=== PATIENT | female | born 1940 ===

== ENCOUNTER 2016-06-28 12:48 | Inpatient (IN) | payer MEDICARE, OTHER ==
--- NOTE | 2016-06-28 13:02 | ED PDOC ---
Psych Transfer Clearance - Clearance Statement Clearance Statement: Reviewed vital signs, lab results and transfer papers. Patient clinically stable for psychiatric admission.
[2016-06-28 13:07] VITALS: O2SAT 99
[2016-06-28] MEDS ORDERED: Magnesium Hydroxide Susp 30 ml UD PO PRN (13:17)
[2016-06-28] MEDS ORDERED: Alum-Mag Hydrox-Simethicone Susp (30 mL) PO PRN (13:17)
--- NOTE | 2016-06-28 14:19 | PCM.PSYCH ---
Initial Psychiatric Evaluation - Initial Psychiatric Evaluation Type of Admission: Voluntary Legal Status: Capacity Chief Complaint (in patient's own words): "I don't know why I'm here." Patient's Reaction to Hospitalization: HPI: 75 y.o., , female who was admitted to 3 secondary to increased depressive symptoms, cognitive deficits and suicide gesture/threat. Pt was a transfer from [facility]. Pt was referred to the ED by her daughterSarita after pt attempted to stab herself with a knife and hit her head several times. Pt's daughter reported hx of depression and similar incident approximately 2 years ago. Pt's daughter reported decreased appetite resulting in approximately 10lbs loss. Per daughter, pt only eats soups and lately her appetite has worsened. Pt's daughter reported no known triggers for increased depressive symptoms and suicide gesture/attempt. Pt reported she does not recall grabbing the knife and attempting to hurt herself. Pt reported that lately her memory is "not the same." Pt reported episodes of depression. Pt reported no contributing triggers to her attempt or increased depression. Pt stated "its things from life." Pt reported episodes of hopeless and worthless. Pt actively denied SI and HI. Pt denied AH and VH. Pt denied any paranoia. Pts daughter reported that pts mood worsened in the past 2 weeks. Pts daughter reported that pt would enjoy watching television and reading; however, lately has not engaged in such activities. Pts daughter reported that ps short term memory is impaired. Per daughter, pt was dx with Alzheimer s disease and has been taking medication for her memory. Daughter reported that pt attends [facility] and it is very rare that pts stays at home alone. Per daughter there is somebody at home at all times. Pts daughter reported periods of crying spell and increasingly anxious. Pts daughter reported her brother completed suicide when he was 42 years old; however, pt refuses to accept his . Per daughter, pt has been talking about lately. PMHx: HTN, Alzheimer's dementia All: NKDA PPHx: No hx of prior psychiatric hospitalizations. Pt is not linked to outpatient mental health services and/or private psychiatrist. Pt's primary care physician is Dr. Enmanuel Pritchard MD. No hx of prior suicide attempt. No hx of self-injury bx's. No hx of aggressive/assaultive bx's. SHx: Pt reported growing up poor in [place] but in peace. Pt reported "normal" childhood. High School Graduation. Pt is not a member of the labor force. Pt is retired. 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 Pt denied hx of Sa/ETOH abuse. Pt's daughter is primary career services manager and support system. Prior to hospitalization, pt resided at home with daughter, son-in-law and 2 grandchildren. Pt is and reported having 2 childre; 1 son and 1 daughter. Pt's daughter, Sarita recently moved from [place] to [place]. Pt's son completed suicide 6 years. Pt's is actively involved in her [employer] and attends [facility] weekly. Pt attends [facility] 3x per week in the AM. FHx: Reportedly, pt's aunt was dx with Schizophrenia D/O and pt's son completed suicide 6 years ago. Current Medications: Active Medications Generic Name Dose Route Start Last Admin Trade Name Freq PRN Reason Stop Dose Admin Acetaminophen 650 mg 06/28/16 13:17 Tylenol 325mg Tab PO Q4 PRN Pain, moderate (4-7) Al Hydrox/Mg Hydrox/Simethicone 30 ml 06/28/16 13:17 Maalox Plus 30 Ml PO Q4 PRN Dyspepsia Magnesium Hydroxide 30 ml 06/28/16 13:17 Milk Of Magnesia PO HS PRN Constipation Past Psychiatric History - Past Psychiatric History Pertinent Medical Hx (Current Medical&Sleep Prob, Allergies): Allergies Allergy/AdvReac Type Severity Reaction Status Date / Time No Known Allergies Allergy Verified 06/28/16 12:53 Review of Systems - Review of Systems Systems not reviewed;Unavailable: Dementia All systems: reviewed and no additional remarkable complaints except - Neurological Neurological: Memory Loss - Psychiatric Psychiatric: As Per HPI, Change in Appetite, Depression, Hopelessness, Memory Loss Mental Status Examination - Personal Presentation Personal Presentation: Looks stated age Additional comments: Cachetic - Affect Affect: Constricted - Motor Activity Motor Activity: Psychomotor Retardation - Reliability in Providing Information Reliability in Providing Information: Poor, due to cognitve impairment - Speech Speech: Coherent - Mood Mood: Depressed - Formal Thought Process Formal Thought Process: Loosening of associations - Obsessions/Compulsions Obsessions: No Compulsions: No - Cognitive Functions Orientation: Person Sensorium: Alert Estimate of Intelligence: Average Judgement: Imparied, as evidence by: Lack of insight into illness Memory: Recent impaired, as evidence by: Inability to recall events of the day, Recent imparied as evidence by:Inability to complete 3/3 object recall, Remote impaired as evidenced by: Inability to recall sig life events, Remote impaired as evidenced by: Inability to recall historical events - Risk Risk: Diminished functioning - Strength & Assets Inventory Strength & Assets Inventory: Family support, Cooperative - Limitations Limitations: Decreased memory, recent DSM 5 DX - DSM 5 DSM 5 Diagnosis: Depressive Disorder, Dementia with behavioral disturbances - Recommended/Plan of Treatment Treatment Recommendations and Plan of Treatment: -Admit to [facility] -Continue Depakote 125 mg PO Daily, check VPA level -Individual and group therapy -Medicine consult, evaluate for UTI Projected ELOS: 4-7 days Discharge Plan and Discharge Criteria: Discharge when psychiatrically stable - Smoking Cessation Smoking Cessation Initiated: No Reason for not providing: Not indicated
[2016-06-28 18:01] LABS: RBC URINE < 1 /hpf (0-3); URINE BACTERIA RARE (<OCC); URINE BILIRUBIN NEGATIVE (NEGATIVE); URINE BLOOD NEGATIVE (NEGATIVE); URINE COLOR YELLOW (YELLOW); URINE GLUCOSE (UA) NEG (Normal); URINE KETONE TRACE mg/dL (NEGATIVE); URINE LEUKOCYTE ESTERASE NEG Leu/uL (Negative); URINE PROTEIN NEGATIVE (NEGATIVE); WBC URINE 1 /hpf (0-5)
[2016-06-28] MEDS: Divalproex 125 mg DR (BID formulation) PO SCH (19:16)
[2016-06-28] MEDS: Latanoprost 0.005% Opht SOUTION OD SCH (22:00)
[2016-06-29 07:23] LABS: T4 9.15 ug/dl (5.5-11.0)
[2016-06-29 07:36] LABS: THYROID STIMULATING HORMONE 0.72 mIU/ML (0.46-4.68)
[2016-06-29] MEDS: Divalproex 125 mg DR (BID formulation) PO SCH ×2 (08:05→16:35)
[2016-06-29] MEDS: NAMZARIC PO SCH (08:07)
[2016-06-29] MEDS: Pantoprazole 40 mg EC Tab PO SCH (08:07)
[2016-06-29] MEDS: Brimonidine 0.2% 50 DROP/5 ML BOTTLE OD SCH ×3 (08:12→16:42)
--- NOTE | 2016-06-29 10:45 | PCM.PYCHPN ---
Psychiatric Progress Note - Psychiatric Progress Note Patient seen today, length of contact: Patient evaluated, case discussed with team, chart reviewed 35 min Patient Chief Complaint: "I don't know why I'm here." Problems Identified/Issues Discussed: A+O x 1. Patient does not know where she is, the date, the situation or context. She does report having poor appetite and feeling depressed. No suicidal ideation/plan/intent. She was suspicious towards staff and did not believe staff when told numerous times that her daughter has not been admitted to the hospital and that her daughter is safe. She would not sign the paperwork due to likely paranoia during the group meeting. She was observed praying this morning. She has been in good behavioral control. Diagnostic Results: 06/29/16- VPA 35 Medication Change: Yes (Start Risperdal 0.5 mg PO Daily@1700, Increase Depakote to 125 mg PO BID) Medical Record Reviewed: Yes Mental Status Examination - Cognitive Function Orientation: Person Memory: Impaired Attention: Poor Concentration: Poor Association: Loose Fund of Knowledge: Poor Decription of patient's judgement and insights: Poor insight, judgment limited by dementia - Mood Mood: Depressed - Affect Affect: Constricted - Formal Thought Process Formal Thought Process: Paranoia, Loosening of associations Psychotic Thoughts and Behaviors: Showing some mild paranoia and suspiciousness towards staff - Suicidal Ideation Suicidal Ideation: No - Homicidal Ideation Homicidal Ideation: No Goal/Treatment Plan - Goal/Treatment Plan Need for Continued Stay: Remain at risks for inpatient hospitalization, Severe depression anxiety, Discharge may exacerbated symptoms, Severe functional impairment Progress Toward Problem(s) and Goals/Treatment Plan: -Admit to [facility] -Increase Depakote to 125 mg PO BID, Start Risperdal 0.5 mg PO Daily@1700 -Individual and group therapy -Medicine consult Estimated Date of D/C: 07/04/16 - Smoking Cessation Smoking Cessation Initiated: No Reason for not providing: Not indicated
--- NOTE | 2016-06-29 15:27 | CP.PCM.CON ---
History of Present Illness - History of Present Illness History of Present Illness: 75 yo female with history of HTN and depression admitted to [facility] because of suicidal intent. Review of Systems - Review of Systems All systems: reviewed and no additional remarkable complaints except (aside from those mentioned above, 12 point system review were negative by me) Past Patient History - Past Social History Smoking Status: Never Smoked Chewing Tobacco Use: No Cigar Use: No Alcohol: None - CARDIAC Hx Hypertension: Yes - PULMONARY Hx Respiratory Disorders: No - NEUROLOGICAL Hx Alzheimer's Disease: Yes Hx Dementia: Yes - HEENT Hx Glaucoma: Yes - RENAL Hx Chronic Kidney Disease: No - ENDOCRINE/METABOLIC Hx Endocrine Disorders: No - HEMATOLOGICAL/ONCOLOGICAL Hx Blood Disorders: No - INTEGUMENTARY Hx Dermatological Problems: No - MUSCULOSKELETAL/RHEUMATOLOGICAL Hx Falls: No - GASTROINTESTINAL Hx Gastrointestinal Disorders: No - GENITOURINARY/GYNECOLOGICAL Hx Genitourinary Disorders: No - PSYCHIATRIC Hx Substance Use: No - ANESTHESIA Hx Anesthesia: No Hx Anesthesia Reactions: No Hx Malignant Hyperthermia: No Meds Allergies/Adverse Reactions: Allergies Allergy/AdvReac Type Severity Reaction Status Date / Time No Known Allergies Allergy Verified 06/28/16 12:53 - Medications Medications: Current Medications Acetaminophen (Tylenol 325mg Tab) 650 mg PO Q4 PRN PRN Reason: Pain, moderate (4-7) Al Hydrox/Mg Hydrox/Simethicone (Maalox Plus 30 Ml) 30 ml PO Q4 PRN PRN Reason: Dyspepsia Amlodipine Besylate (Norvasc) 5 mg PO DAILY [facility] Last Admin: 06/29/16 08:06 Dose: 5 mg Brimonidine Tartrate (Alphagan 0.2% Opht) 1 drop OD TID [facility] Last Admin: 06/29/16 13:28 Dose: 1 drop Divalproex Sodium (Depakote Dr(*Bid*)) 125 mg PO BID [facility] Last Admin: 06/29/16 08:05 Dose: 125 mg Home Med (Patient's Own Medication) 1 unit PO DAILY [facility] Last Admin: 06/29/16 08:07 Dose: 1 unit Latanoprost (Xalatan Opht) 1 drop OD HS [facility] Last Admin: 06/28/16 22:00 Dose: 1 drop Magnesium Hydroxide (Milk Of Magnesia) 30 ml PO HS PRN PRN Reason: Constipation Pantoprazole Sodium (Protonix Ec Tab) 40 mg PO DAILY [facility] Last Admin: 06/29/16 08:07 Dose: 40 mg Risperidone (Risperdal M-Tab) 0.5 mg PO DAILY@1700 [facility] Timolol Maleate (Timoptic 0.5% Ophth Soln) 1 drop OD BID [facility] Last Admin: 06/29/16 13:29 Dose: 1 drop Valsartan (Diovan) 320 mg PO DAILY [facility] Last Admin: 06/29/16 08:05 Dose: 320 mg Physical Exam - Constitutional Appears: No Acute Distress - Head Exam Head Exam: ATRAUMATIC - Eye Exam Eye Exam: absent: Scleral icterus - ENT Exam ENT Exam: Mucous Membranes Moist - Neck Exam Neck exam: Negative for: Meningismus - Respiratory Exam Respiratory Exam: absent: Rhonchi, Wheezes, Respiratory Distress - Cardiovascular Exam Cardiovascular Exam: REGULAR RHYTHM, +S1, +S2 - GI/Abdominal Exam GI & Abdominal Exam: Soft. absent: Tenderness - Rectal Exam Rectal Exam: Deferred - Neurological Exam Neurological exam: Alert, Oriented x3 - Psychiatric Exam Psychiatric exam: Flat Affect - Skin Skin Exam: Dry, Intact, Normal Color Results - Vital Signs Recent Vital Signs: Last Vital Signs Temp 97.1 F L 06/29/16 05:56 Pulse 93 H 06/29/16 08:06 Resp 18 06/29/16 05:56 BP 163/73 H 06/29/16 08:06 Pulse Ox 99 06/28/16 12:53 - Labs Labs: Laboratory Results - last 24 hr 06/28/16 06/29/16 06/29/16 17:46 06:39 06:39 Thyroxine (T4) 9.15 TSH 3rd Generation 0.72 Urine Color Yellow Urine Clarity Clear Urine pH 6.0 Ur Specific [place] 1.013 Urine Protein Negative Urine Glucose (UA) Neg Urine Ketones Trace Urine Blood Negative Urine Nitrate Negative Urine Bilirubin Negative Urine Urobilinogen 2.0 H Ur Leukocyte Esterase Neg Urine RBC (Auto) < 1 Urine Microscopic WBC 1 Ur Squamous Epith Cells < 1 Urine Bacteria Rare Valproic Acid 35.0 L Assessment & Plan (1) Suicidal intent Status: Acute Comment: psyche is managing
[2016-06-29] MEDS: Risperidone M tab 0.5MG PO SCH (16:34)
[2016-06-29] MEDS: Latanoprost 0.005% Opht SOUTION OD SCH (21:09)
[2016-06-30] MEDS: Divalproex 125 mg DR (BID formulation) PO SCH ×2 (08:43→17:03)
[2016-06-30] MEDS: Pantoprazole 40 mg EC Tab PO SCH (08:44)
[2016-06-30] MEDS: NAMZARIC PO SCH (08:46)
[2016-06-30] MEDS: Brimonidine 0.2% 50 DROP/5 ML BOTTLE OD SCH ×3 (08:47→17:02)
--- NOTE | 2016-06-30 10:27 | PCM.PYCHPN ---
Psychiatric Progress Note - Psychiatric Progress Note Patient seen today, length of contact: Patient evaluated, case discussed with team, chart reviewed 35 min Patient Chief Complaint: "I don't know why I'm here." Problems Identified/Issues Discussed: A+O x 1. Patient does not know where she is, the date, the situation or context. She is calm and cooperative and tried to leave the unit last night, but was redirectable. She denies current feelings of depression or suicidal ideation/plan/intent. She does report having poor appetite and has not been eating well on the unit. Diagnostic Results: 06/29/16- VPA 35 Medication Change: No Medical Record Reviewed: Yes Mental Status Examination - Cognitive Function Orientation: Person Memory: Impaired Attention: Poor Concentration: Poor Association: Loose Fund of Knowledge: Poor Decription of patient's judgement and insights: Poor insight, judgment limited by dementia - Mood Mood: Depressed - Affect Affect: Constricted - Formal Thought Process Formal Thought Process: Loosening of associations - Suicidal Ideation Suicidal Ideation: No - Homicidal Ideation Homicidal Ideation: No Goal/Treatment Plan - Goal/Treatment Plan Need for Continued Stay: Remain at risks for inpatient hospitalization, Severe depression anxiety, Discharge may exacerbated symptoms, Severe functional impairment Progress Toward Problem(s) and Goals/Treatment Plan: -Continue Depakote 125 mg PO BID, Continue Risperdal 0.5 mg PO Daily@1700 -Individual and group therapy -Medicine consult appreciated -Dietitian referral Estimated Date of D/C: 07/04/16 - Smoking Cessation Smoking Cessation Initiated: No Reason for not providing: Not indicated
[2016-06-30] MEDS: Risperidone M tab 0.5MG PO SCH (17:03)
--- NOTE | 2016-07-01 08:57 | PCM.PYCHPN ---
Psychiatric Progress Note - Psychiatric Progress Note Patient seen today, length of contact: Patient evaluated, case discussed with team, chart reviewed 35 min Patient Chief Complaint: "I'm good" Problems Identified/Issues Discussed: A+O x 1, orientation fluctuates due to dementia. Patient has been in good behavioral control without any ideation to harm herself. She is calm, cooperative and pleasant towards staff. She denies current feelings of depression or suicidal ideation/plan/intent. She does report having poor appetite and has not been eating well on the unit; is being given Ensure as per dietitian recommendation Diagnostic Results: 06/29/16- VPA 35 Medication Change: No Medical Record Reviewed: Yes Mental Status Examination - Cognitive Function Orientation: Person Memory: Impaired Attention: Poor Concentration: Poor Association: Loose Fund of Knowledge: Poor Decription of patient's judgement and insights: Poor insight, judgment limited by dementia - Mood Mood: Depressed - Affect Affect: Constricted - Speech Speech: Soft - Formal Thought Process Formal Thought Process: Loosening of associations Psychotic Thoughts and Behaviors: No AH/VH/delusions/paranoia - Suicidal Ideation Suicidal Ideation: No - Homicidal Ideation Homicidal Ideation: No Goal/Treatment Plan - Goal/Treatment Plan Need for Continued Stay: Remain at risks for inpatient hospitalization, Severe depression anxiety, Severe functional impairment Progress Toward Problem(s) and Goals/Treatment Plan: -Continue Depakote 125 mg PO BID, Continue Risperdal 0.5 mg PO Daily@1700 -Individual and group therapy -Medicine consult appreciated -Dietitian consult appreciated Estimated Date of D/C: 07/04/16
[2016-07-01] MEDS: Brimonidine 0.2% 50 DROP/5 ML BOTTLE OD SCH ×3 (09:09→17:36)
[2016-07-01] MEDS: Divalproex 125 mg DR (BID formulation) PO SCH ×2 (09:10→17:35)
[2016-07-01] MEDS: NAMZARIC PO SCH (09:11)
[2016-07-01] MEDS: Pantoprazole 40 mg EC Tab PO SCH (09:12)
[2016-07-01] MEDS: Multivitamin With Minerals Tab PO SCH (09:12)
[2016-07-01] MEDS: Risperidone M tab 0.5MG PO SCH (17:37)
[2016-07-01] MEDS: Latanoprost 0.005% Opht SOUTION OD SCH (21:03)
[2016-07-02] MEDS: Pantoprazole 40 mg EC Tab PO SCH ×2 (09:40→16:48)
[2016-07-02] MEDS: Divalproex 125 mg DR (BID formulation) PO SCH (09:40)
[2016-07-02] MEDS: NAMZARIC PO SCH ×2 (09:40→16:41)
[2016-07-02] MEDS: Multivitamin With Minerals Tab PO SCH ×2 (09:40→16:47)
[2016-07-02] MEDS: Brimonidine 0.2% 50 DROP/5 ML BOTTLE OD SCH ×3 (09:40→16:49)
[2016-07-02] MEDS ORDERED: DiphenhydrAMINE 50 mg/ml Inj IM PRN (10:49)
--- NOTE | 2016-07-02 11:36 | PCM.PYCHPN ---
Psychiatric Progress Note - Psychiatric Progress Note Patient seen today, length of contact: discussed with team Patient Chief Complaint: sleeping Problems Identified/Issues Discussed: pt sedated. she was given prn meds for agiation this am. was threatening staff with a fork. loud at night, screaming and unpredictable. dr. coleman has called in meds. Medication Change: Yes (per dr. coleman) Medical Record Reviewed: Yes Mental Status Examination - Cognitive Function Orientation: Person Memory: Impaired Attention: Poor Concentration: Poor Association: Loose Fund of Knowledge: Poor Decription of patient's judgement and insights: poor - Mood Mood: Depressed, Other (irritable) - Affect Affect: Constricted (sleeping currently) - Speech Speech: Soft - Formal Thought Process Formal Thought Process: Loosening of associations Psychotic Thoughts and Behaviors: pt is unpredictable - Suicidal Ideation Suicidal Ideation: No - Homicidal Ideation Homicidal Ideation: No Goal/Treatment Plan - Goal/Treatment Plan Need for Continued Stay: Remain at risks for inpatient hospitalization, Severe depression anxiety, Severe functional impairment Progress Toward Problem(s) and Goals/Treatment Plan: dementia with behavioral disturbance disposition planning med changes per dr. coleman Estimated Date of D/C: 07/04/16
[2016-07-02] MEDS: Divalproex 250 mg DR(BID formulation) PO SCH (16:42)
[2016-07-02] MEDS: Risperidone M tab 0.5MG PO SCH (16:43)
[2016-07-02] MEDS: Latanoprost 0.005% Opht SOUTION OD SCH (22:00)
[2016-07-03] MEDS: Brimonidine 0.2% 50 DROP/5 ML BOTTLE OD SCH ×3 (12:31→16:32)
[2016-07-03] MEDS: Multivitamin With Minerals Tab PO SCH (12:32)
[2016-07-03] MEDS: NAMZARIC PO SCH (12:33)
[2016-07-03] MEDS: Divalproex 125 mg DR (BID formulation) PO SCH (12:34)
[2016-07-03] MEDS: Pantoprazole 40 mg EC Tab PO SCH (12:37)
--- NOTE | 2016-07-03 14:28 | PCM.PYCHPN ---
Psychiatric Progress Note - Psychiatric Progress Note Patient seen today, length of contact: discussed with team Patient Chief Complaint: no c/o today Problems Identified/Issues Discussed: pt continues to have episodes of agitation. she has been given prn ativan two days in a row. he was refusing medications this am. Diagnostic Results: valproic acid level is 23.6 Medication Change: Yes (per dr. coleman) Medical Record Reviewed: Yes Mental Status Examination - Cognitive Function Orientation: Person Memory: Impaired Attention: Poor Concentration: Poor Association: Loose Fund of Knowledge: Poor Decription of patient's judgement and insights: poor - Mood Mood: Depressed, Other (irritable) - Affect Affect: Constricted (sleeping currently) - Speech Speech: Soft - Formal Thought Process Formal Thought Process: Loosening of associations Psychotic Thoughts and Behaviors: pt is unpredictable - Suicidal Ideation Suicidal Ideation: No - Homicidal Ideation Homicidal Ideation: No Goal/Treatment Plan - Goal/Treatment Plan Need for Continued Stay: Remain at risks for inpatient hospitalization, Severe depression anxiety, Severe functional impairment Progress Toward Problem(s) and Goals/Treatment Plan: dementia with behavioral disturbance disposition planning med changes per dr. coleman t/c increasing depakote, but will defer to primary team Estimated Date of D/C: 07/04/16
[2016-07-03] MEDS: Divalproex 250 mg DR(BID formulation) PO SCH (16:30)
[2016-07-03] MEDS: Risperidone M tab 0.5MG PO SCH (16:30)
[2016-07-03] MEDS: Latanoprost 0.005% Opht SOUTION OD SCH (21:12)
[2016-07-04] MEDS: Pantoprazole 40 mg EC Tab PO SCH (08:20)
[2016-07-04] MEDS: NAMZARIC PO SCH (08:21)
[2016-07-04] MEDS: Multivitamin With Minerals Tab PO SCH (08:22)
[2016-07-04] MEDS: Divalproex 125 mg DR (BID formulation) PO SCH (08:22)
[2016-07-04] MEDS: Brimonidine 0.2% 50 DROP/5 ML BOTTLE OD SCH ×3 (08:25→16:25)
--- NOTE | 2016-07-04 08:42 | PCM.PYCHPN ---
Psychiatric Progress Note - Psychiatric Progress Note Patient seen today, length of contact: Chart reviewed, patient interviewed, case discussed with team Patient Chief Complaint: "Can you help me call my daughter?" Problems Identified/Issues Discussed: A+O x 1, orientation fluctuates due to dementia. Patient has had several episodes of agitation over the weekend, requiring PRN medications. She has poor insight into her periods of aggression and does not recall being aggressive or threatening. She is currently calm and cooperative with property underwriter, but continues to be paranoid and suspicious of others. Diagnostic Results: 06/29/16- VPA 35 07/03/16- VPA 23.6 Medication Change: Yes (Increase Risperdal to 0.5 mg PO BID) Medical Record Reviewed: Yes Mental Status Examination - Cognitive Function Orientation: Person Memory: Impaired Attention: Poor Concentration: Poor Association: Loose Fund of Knowledge: Poor Decription of patient's judgement and insights: Poor insight/judgment - Mood Mood: Depressed - Affect Affect: Constricted (sleeping currently) - Speech Speech: Soft - Formal Thought Process Formal Thought Process: Paranoia, Loosening of associations Psychotic Thoughts and Behaviors: Paranoid towards staff - Suicidal Ideation Suicidal Ideation: No - Homicidal Ideation Homicidal Ideation: No Goal/Treatment Plan - Goal/Treatment Plan Need for Continued Stay: Remain at risks for inpatient hospitalization, Severe depression anxiety, Severe functional impairment Progress Toward Problem(s) and Goals/Treatment Plan: -Continue Depakote 125 mg PO Daily/ 250 mg PO Daily @1700, Increase Risperdal to 0.5 mg PO BID -Individual and group therapy -Medicine consult appreciated -Dietitian consult appreciated Estimated Date of D/C: 07/08/16
[2016-07-04] MEDS: Risperidone M tab 0.5MG PO SCH (16:25)
[2016-07-04] MEDS: Divalproex 250 mg DR(BID formulation) PO SCH (16:26)
[2016-07-04] MEDS: Latanoprost 0.005% Opht SOUTION OD SCH (21:13)
[2016-07-05] MEDS: Brimonidine 0.2% 50 DROP/5 ML BOTTLE OD SCH ×3 (08:55→16:18)
[2016-07-05] MEDS: Divalproex 250 mg DR(BID formulation) PO SCH ×3 (08:55→16:13)
[2016-07-05] MEDS: Pantoprazole 40 mg EC Tab PO SCH (08:56)
[2016-07-05] MEDS: NAMZARIC PO SCH (08:56)
[2016-07-05] MEDS: Multivitamin With Minerals Tab PO SCH (08:56)
--- NOTE | 2016-07-05 14:15 | PCM.PYCHPN ---
Psychiatric Progress Note - Psychiatric Progress Note Patient seen today, length of contact: Chart reviewed, patient interviewed, case discussed with team Patient Chief Complaint: "Can you help me call my daughter?" Problems Identified/Issues Discussed: A+O x 1, orientation fluctuates due to dementia. Patient had another episode of agitation this morning, requiring PRN medication. She has poor insight into her periods of aggression and does not recall being aggressive or threatening. She is currently calm and cooperative with remote mortgage underwriter. Diagnostic Results: 06/29/16- VPA 35 07/03/16- VPA 23.6 Medication Change: Yes (Increase Depakote to 250 mg PO BID) Medical Record Reviewed: Yes Mental Status Examination - Cognitive Function Orientation: Person Memory: Impaired Attention: Poor Concentration: Poor Association: Loose Fund of Knowledge: Poor Decription of patient's judgement and insights: Poor insight/judgment - Mood Mood: Neutral - Affect Affect: Constricted (sleeping currently) - Speech Speech: Soft - Formal Thought Process Formal Thought Process: Paranoia, Loosening of associations Psychotic Thoughts and Behaviors: Paranoid towards staff - Suicidal Ideation Suicidal Ideation: No - Homicidal Ideation Homicidal Ideation: No Goal/Treatment Plan - Goal/Treatment Plan Need for Continued Stay: Remain at risks for inpatient hospitalization, Severe depression anxiety, Severe functional impairment Progress Toward Problem(s) and Goals/Treatment Plan: Patient continues to have intermittent episodes of agitation/aggression. She needs continued hospitalization for treatment and safety. Case discussed with patient's daughter. -Increase Depakote to 250 mg PO BID, Continue Risperdal 0.5 mg PO BID -Individual and group therapy -Medicine consult appreciated -Dietitian consult appreciated Estimated Date of D/C: 07/08/16
[2016-07-05] MEDS: Risperidone M tab 0.5MG PO SCH (16:16)
[2016-07-05] MEDS: Latanoprost 0.005% Opht SOUTION OD SCH (21:58)
[2016-07-06] MEDS: Brimonidine 0.2% 50 DROP/5 ML BOTTLE OD SCH ×3 (09:05→16:07)
[2016-07-06] MEDS: Divalproex 250 mg DR(BID formulation) PO SCH ×2 (09:06→16:06)
[2016-07-06] MEDS: NAMZARIC PO SCH (09:08)
[2016-07-06] MEDS: Pantoprazole 40 mg EC Tab PO SCH (09:08)
[2016-07-06] MEDS: Multivitamin With Minerals Tab PO SCH (09:09)
--- NOTE | 2016-07-06 10:29 | PCM.PYCHPN ---
Psychiatric Progress Note - Psychiatric Progress Note Patient seen today, length of contact: Chart reviewed, patient interviewed, case discussed with team Patient Chief Complaint: "I'm okay" Problems Identified/Issues Discussed: A+O x 1, orientation fluctuates due to dementia. Patient got a PRN yesterday evening for agitation, but was calm after that and remains calm this morning. She continues to be confused and disorganized due to dementia. She has poor insight into her periods of aggression and does not recall being aggressive or threatening. She is currently calm and cooperative with web content writer. Diagnostic Results: 06/29/16- VPA 35 07/03/16- VPA 23.6 Medication Change: No Medical Record Reviewed: Yes Mental Status Examination - Cognitive Function Orientation: Person Memory: Impaired Attention: Poor Concentration: Poor Association: Loose Fund of Knowledge: Poor Decription of patient's judgement and insights: Poor insight/judgment - Mood Mood: Neutral - Affect Affect: Constricted (sleeping currently) - Speech Speech: Soft - Formal Thought Process Formal Thought Process: Loosening of associations Psychotic Thoughts and Behaviors: NO AH/VH/paranoia - Suicidal Ideation Suicidal Ideation: No - Homicidal Ideation Homicidal Ideation: No Goal/Treatment Plan - Goal/Treatment Plan Need for Continued Stay: Remain at risks for inpatient hospitalization, Severe depression anxiety, Severe functional impairment Progress Toward Problem(s) and Goals/Treatment Plan: 75 yo [place] female w/ h/o depression and dementia w/ behavioarl disturbances. Patient is having less episodes of agitation. She needs continued hospitalization for treatment and safety. Case discussed with patient's daughter. -Continue Depakote 250 mg PO BID, Continue Risperdal 0.5 mg PO BID -Individual and group therapy -Medicine consult appreciated -Dietitian consult appreciated -Possible discharge to home Monday under the daughter's care if the patient continues to improve clinically Estimated Date of D/C: 07/08/16
[2016-07-06] MEDS: Risperidone M tab 0.5MG PO SCH (16:06)
[2016-07-06] MEDS: Latanoprost 0.005% Opht SOUTION OD SCH (21:04)
--- NOTE | 2016-07-07 07:59 | PCM.PYCHPN ---
Psychiatric Progress Note - Psychiatric Progress Note Patient seen today, length of contact: Chart reviewed, patient interviewed, case discussed with team Patient Chief Complaint: "I'm okay" Problems Identified/Issues Discussed: Patient is calmer on the unit, although she does get scared and worried at times , due to not recognizing the environment. She is calm and cooperative towards casualty underwriter. She continues to be confused and disorganized due to dementia. She has poor insight into her dementia and intermittent abnormal behaviors. Diagnostic Results: 06/29/16- VPA 35 07/03/16- VPA 23.6 Medication Change: No Medical Record Reviewed: Yes Mental Status Examination - Cognitive Function Orientation: Person Memory: Impaired Attention: Poor Concentration: Poor Association: Loose Fund of Knowledge: Poor Decription of patient's judgement and insights: Poor insight/judgment - Mood Mood: Neutral - Affect Affect: Constricted (sleeping currently) - Speech Speech: Soft - Formal Thought Process Formal Thought Process: Loosening of associations Psychotic Thoughts and Behaviors: NO AH/VH/paranoia - Suicidal Ideation Suicidal Ideation: No - Homicidal Ideation Homicidal Ideation: No Goal/Treatment Plan - Goal/Treatment Plan Need for Continued Stay: Severe functional impairment Progress Toward Problem(s) and Goals/Treatment Plan: 75 yo [place] female w/ h/o depression and dementia w/ behavioarl disturbances, now improving. Case discussed with patient's daughter. -Continue Depakote 250 mg PO BID, Continue Risperdal 0.5 mg PO BID -Individual and group therapy -Medicine consult appreciated -Dietitian consult appreciated -Likley discharge to home Monday under the daughter's care if the patient continues to improve clinically Estimated Date of D/C: 07/08/16 - Smoking Cessation Smoking Cessation Initiated: No Reason for not providing: Not indicated
[2016-07-07] MEDS: Brimonidine 0.2% 50 DROP/5 ML BOTTLE OD SCH ×3 (09:50→17:14)
[2016-07-07] MEDS: Divalproex 250 mg DR(BID formulation) PO SCH ×2 (09:51→17:14)
[2016-07-07] MEDS: Pantoprazole 40 mg EC Tab PO SCH (09:51)
[2016-07-07] MEDS: NAMZARIC PO SCH (09:51)
[2016-07-07] MEDS: Multivitamin With Minerals Tab PO SCH (09:52)
[2016-07-07] MEDS: Latanoprost 0.005% Opht SOUTION OD SCH ×2 (21:23→22:00)
[2016-07-08] MEDS: NAMZARIC PO SCH (08:42)
[2016-07-08] MEDS: Multivitamin With Minerals Tab PO SCH (08:42)
[2016-07-08] MEDS: Brimonidine 0.2% 50 DROP/5 ML BOTTLE OD SCH ×3 (08:43→16:20)
[2016-07-08] MEDS: Divalproex 250 mg DR(BID formulation) PO SCH ×2 (08:43→16:20)
[2016-07-08] MEDS: Pantoprazole 40 mg EC Tab PO SCH (08:44)
--- NOTE | 2016-07-08 13:48 | PCM.PYCHDC ---
Mental Status Examination - Mental Status Examination Orientation: Person Memory: Impaired Mood: Anxious Affect: Constricted Speech: Appropriate Attention: Poor Concentration: Poor Association: Loose Fund of Knowledge: Poor Formal Thought Process: No Impairment Description of patient's judgement and insight: poor Psychotic Thoughts and Behaviors: no a/v hallucinations endorsed Suicidal Ideation: No Current Homicidal Ideation?: No Plan: no expression of suicidal or homicidal thoughts Discharge Summary - Discharge Note Reason for Hospitalization: aggression/agitation Consultations:: List each consultation separately and include: 1. Reason for request. 2. Findings. 3. Follow-up Consultations: followed by hospitalist Summary of Hospital Course include:: 1. Description of specific treatment plan utilized for patients during their course of treatmen. 2. Summarize the time- course for resolution of acute symptoms and/or regressed behaviors. 3. Describe issues identified and worked on during hospitalization. 4. Describe medication utilized. 5. Describe medical problems identified and treated. 6. Reassessment of suicide risk Summary of Hospital Course: [facility] and oriented to the unit. pt seen by the medical assembly. pt followed by dr. coleman who started pt on current medication and made dose adjustments. pt was initially with episodes of aggression and agitation, which improved with treatment on the milieu and with medication changes. she tolerated her medication changes. the pt's family was expressing to the team that they wanted her home and she was discharged to care of her daughter. pt was without any aggression or agitation at the time of discharge. - Final Diagnosis (DSM 5) Condition upon Discharge: FAIR DSM 5: dementia with behavioral disturbance Disposition: HOME/ ROUTINE Follow-up Treatment Plan: follow up with aftercare a directed take medications as prescribed do not use alcohol, tobacco or other illicit substances call 911 if any suicidal or homicidal thoughts Prescriptions/Medication Reconciliation: Divalproex [Depakote DR(*BID*)] 250 mg PO BID #60 tcp risperiDONE [RisperDAL Tab] 0.5 mg PO BID #60 tab - Smoking Cessation Smoking Cessation Medication prescribed: No - Antipsychotic Medications Pt discharged on 2 or more routine antipsychotic medications: No
[2016-07-08 17:44] VITALS: BP 118/66; PULSE 78; RESP 20; TEMP 98
== END 2016-07-08 17:15 | disposition home or self-care (01) | DRG 57 ==
LOC: H.ER 12:48 → H.STEP 13:01 → H.ERHOLD 13:01 → H.STEP 20:53
PROVIDERS: ADMIT Psychiatry & Neurology Psychiatry; ATTEND Psychiatry & Neurology Psychiatry
PROC: GZHZZZZ Group Psychotherapy (ICD-10-PCS; principal; 2016-06-28)
PROC: GZ58ZZZ Individual Psychotherapy, Cognitive-Behavioral (ICD-10-PCS; 2016-06-28)
DX: G30.9 Alzheimer's disease, unspecified (principal); F02.81 Dementia in other diseases classified elsewhere, unspecified severity, with behavioral disturbance; F32.9 Major depressive disorder, single episode, unspecified; I10 Essential (primary) hypertension; H40.9 Unspecified glaucoma

== ENCOUNTER 2016-10-29 18:17 | Emergency (ER) | payer MEDICARE, OTHER ==
[2016-10-29 18:30] VITALS: BP 130/82; PULSE 99; RESP 22; TEMP 98.4; O2SAT 100
[2016-10-29 19:09] LABS: VENOUS BLOOD GAS BASE EXCESS 7.2 mmol/L (0.0-2.0); VENOUS BLOOD GAS PCO2 48 mmHg (40-60); VENOUS BLOOD PH 7.44 (7.32-7.43)
[2016-10-29 19:20] LABS: BASO % 0.8 % (0.0-2.0); EOS % 0.5 % (0.0-4.0); HEMATOCRIT 38.7 % (34.0-47.0); LYMPH # 1.1 K/uL (1.0-4.3); LYMPH % 21.2 % (20.0-40.0); MEAN CELL VOLUME 88.3 fl (81.0-99.0); MEAN CORPUSCULAR HEMOGLOBIN 28.8 pg (27.0-31.0); MEAN CORPUSCULAR HGB CONC 32.6 g/dL (33.0-37.0); MEAN PLATELET VOLUME 8.9 fl (7.2-11.7); MONO # 0.4 K/uL (0.0-0.8); MONO % 8.3 % (0.0-10.0); NEUT # 3.7 K/uL (1.8-7.0); NEUT % 69.2 % (50.0-75.0); RED CELL DISTRIBUTION WIDTH 12.5 % (11.5-14.5); WHITE BLOOD COUNT 5.4 K/uL (4.8-10.8)
--- NOTE | 2016-10-29 19:23 | ED PDOC ---
HPI: General Adult Time Seen by Provider: 10/29/16 18:33 Chief Complaint (Nursing): Finger,Hand,&Wrist Chief Complaint (Provider): Weakness History Per: Patient, Family History/Exam Limitations: clinical condition (dementia; nonverbal [baseline]) Onset/Duration Of Symptoms: Days (x2 weeks) Additional Complaint(s): Lina Leal is a 76 year old female with previous medical history of Alzheimer's disease and dementia, who presents to the emergency department accompanied by her family, for an evaluation of generalized weakness associated with decreased PO intake ongoing for 2 weeks. Family stated patient only ingested small amount of juice and water but has not ate solid food in the last 2 days. Denied diarrhea, vomiting, cough, fever, chills, or runny nose. Of note, patient is nonverbal (baseline) and dementia has rapidly been progressive in the last 6 months. PMD: Enmanuel Pricthard MD Past Medical History Reviewed: Historical Data, Nursing Documentation, Vital Signs Vital Signs: Last Vital Signs Temp 98.4 F 10/29/16 18:26 Pulse 99 H 10/29/16 18:26 Resp 22 10/29/16 18:26 BP 130/82 10/29/16 18:26 Pulse Ox 100 10/29/16 22:12 - Medical History PMH: Alzheimer's Disease, Dementia, HTN Denies: Chronic Kidney Disease Other PMH: osteoarthritis - Surgical History Surgical History: Cholecystectomy Other surgeries: cataract surgery - Family History Family History: States: Unknown Family Hx - Living Arrangements Living Arrangements: With Family - Social History Current smoker - smoking cessation education provided: No Alcohol: None Drugs: Denies - Home Medications Home Medications: Ambulatory Orders Medication Instructions Recorded Brimonidine 0.2% [Alphagan 0.2% 1 drop OD TID bottle 07/07/16 Opht] Divalproex [Depakote DR(*BID*)] 250 mg PO BID #60 tcp 07/07/16 Latanoprost 0.005% Opht [Xalatan 1 drop OD HS bottle 07/07/16 Opht] Multimineral/Multivitamin 1 tab PO DAILY tab 07/07/16 [Therapeutic-M Tab] Pantoprazole [Protonix EC Tab] 40 mg PO DAILY ect 07/07/16 Timolol 0.5% Ophth [Timoptic 0.5% 1 drop OD BID bottle 07/07/16 [facility]] Valsartan [Diovan] 320 mg PO DAILY tab 07/07/16 amLODIPine [Norvasc] 5 mg PO DAILY tab 07/07/16 risperiDONE [RisperDAL Tab] 0.5 mg PO BID #60 tab 07/07/16 - Allergies Allergies/Adverse Reactions: Allergies Allergy/AdvReac Type Severity Reaction Status Date / Time No Known Allergies Allergy Verified 06/28/16 12:53 Review of Systems Review Of Systems: ROS cannot be obtained secondary to pt's inabilty to answer questions. (dementia) Constitutional: Positive for: Weakness (generalized). Negative for: Fever, Chills ENT: Negative for: Nose Discharge Respiratory: Negative for: Cough Gastrointestinal: Positive for: Other (loss of appetite). Negative for: Vomiting, Diarrhea Physical Exam - Reviewed Nursing Documentation Reviewed: Yes Vital Signs Reviewed: Yes - Physical Exam Appears: Positive for: No Acute Distress (appear chronically ill, demented) Head Exam: Positive for: ATRAUMATIC, NORMOCEPHALIC Skin: Positive for: Warm, Dry Eye Exam: Positive for: EOMI. Negative for: Periorbital swelling ENT: Positive for: Other (tacky muc membranes) Neck: Positive for: Limited ROM (flexed to RIGHT, reported as ongoing for about 2 weeks, pt will not lift head up voluntarily) Cardiovascular/Chest: Positive for: Regular Rate, Rhythm. Negative for: Murmur Respiratory: Positive for: Normal Breath Sounds. Negative for: Accessory Muscle Use, Wheezing, Respiratory Distress Gastrointestinal/Abdominal: Positive for: Soft. Negative for: Tenderness, Distended, Guarding Back: Positive for: Other (marked kyphosis). Negative for: Vertebral Tenderness Extremity: Positive for: Other (poor muscle bulk diffusely). Negative for: Pedal Edema, Calf Tenderness, Deformity Lymphatic: Negative for: Adenopathy Neurologic/Psych: Positive for: Other (minimally verbal to family, responds to painful stimuli equally to all 4 extremities, appears cognitively impaired). Negative for: Oriented - Laboratory Results Result Diagrams: 10/29/16 19:15 10/29/16 19:15 - ECG O2 Sat by Pulse Oximetry: 100 (RA) Pulse Ox Interpretation: Normal Medical Decision Making Medical Decision Making: Initial Impression: Dementia; loss of appetite Differential diagnosis: Electrolyte abnormality; dehydration; UTI; sepsis Initial Plan: * Type and screen * CT head without contrast * EKG * B-type natriuretic peptide * Labs * Lipase * Magnesium * Phosphorous * Troponin I * Urine dipstick * PTT * PT * CXR * Blood culture * Urine culture * Accucheck * Urine straight catheterization * Urinalysis Time: 2024 --CT Head FINDINGS: Brain: There is dilatation of sulci gyri and ventricles. There is no midline shift. There is decreased attenuation in periventricular white matter. There are no focal masses. There are no focal hemorrhages. Rachel-white differentiation is visualized. Ventricles: See above. Bones: Cranial vault is intact. Soft tissues: unremarkable Sinuses: There is no acute sinusitis. Ears and mastoids: Middle ears and mastoids are unremarkable. Orbits: There are no acute orbital abnormalities. There are postsurgical changes in the left orbit. IMPRESSION: Atrophy and small vessel disease, no acute intracranial abnormality. No emergently significant lab abnormalities Pt asked for food and ate a cup of pudding in ER DW family findings and plan of care. Pt to be discharge with urgent follow up Dr Pritchard. Scribe Attestation: Documented by Veronica Estrada, acting as a scribe for Petra Alcantara MD. Provider Scribe Attestation: All medical record entries made by the Scribe were at my direction and personally dictated by me. I have reviewed the chart and agree that the record accurately reflects my personal performance of the history, physical exam, medical decision making, and the department course for this patient. I have also personally directed, reviewed, and agree with the discharge instructions and disposition. Disposition - Clinical Impression Clinical Impression: Loss of appetite - Disposition Referrals: Enmanuel Pritchard MD [Medical Doctor] - 10/31/16 Disposition: Routine/Home Disposition Time: 21:00 Condition: IMPROVED Instructions: Weakness (ED) Print Language: JAPANESE
[2016-10-29 19:26] LABS: RBC URINE 3 /hpf (0-3); URINE BACTERIA RARE (<OCC); URINE BILIRUBIN NEGATIVE (NEGATIVE); URINE BLOOD NEGATIVE (NEGATIVE); URINE COLOR AMBER (YELLOW); URINE GLUCOSE (UA) NEG (Normal); URINE KETONE TRACE mg/dL (NEGATIVE); URINE LEUKOCYTE ESTERASE NEG Leu/uL (Negative); URINE PROTEIN 100 mg/dL (NEGATIVE); WBC URINE 3 /hpf (0-5)
[2016-10-29 19:31] LABS: ALB/GLOB RATIO 1.2 (1.0-2.1); ALKALINE PHOSPHATASE 65 U/L (38-126); ALT/SGPT 34 U/L (9-52); AST/SGOT 34 U/L (14-36); BILIRUBIN,TOTAL 0.5 mg/dl (0.2-1.3); BLOOD UREA NITROGEN 11 mg/dl (7-17); CALCIUM 10.2 mg/dL (8.4-10.2); CARBON DIOXIDE 30 mmol/L (22-30); CHLORIDE 103 mmol/L (98-107); GFR AFRICAN-AMERICAN > 60; GLUCOSE,RANDOM 113 mg/dL (65-105); LIPASE 151 U/L (23-300); MAGNESIUM 1.9 MG/DL (1.6-2.3); PARTIAL THROMBOPLASTIN TIME 29.4 Seconds (25.6-37.1); PHOSPHOROUS 3.4 mg/dl (2.5-4.5); POTASSIUM 4.2 MMOL/L (3.6-5.0); SODIUM 141 mmol/l (132-148); TOTAL PROTEIN 7.1 G/DL (6.3-8.2)
--- NOTE | 2016-10-29 20:25 | CT ---
EXAM: CT Head Without Intravenous Contrast EXAM DATE/TIME: 10/29/2016 6:53 PM CLINICAL HISTORY: 76 years old, female; Signs and symptoms; Other: AMS; Prior surgery; Surgery date: 6+ months; Surgery type: Cataracts SX. AMS. Alzheimer's dementia. Loss of appetite x 2 weeks; Additional info: AMS. Best exam obtained pt unable to hold position TECHNIQUE: Axial computed tomography images of the head/brain without intravenous contrast. All CT scans at this facility use one or more dose reduction techniques, viz.: automated exposure control; ma/kV adjustment per patient size (including targeted exams where dose is matched to indication; i.e. head); or iterative reconstruction technique. COMPARISON: There are no prior studies for comparison. FINDINGS: Brain: There is dilatation of sulci gyri and ventricles. There is no midline shift. There is decreased attenuation in periventricular white matter. There are no focal masses. There are no focal hemorrhages. Rachel-white differentiation is visualized. Ventricles: See above. Bones: Cranial vault is intact. Soft tissues: unremarkable Sinuses: There is no acute sinusitis. Ears and mastoids: Middle ears and mastoids are unremarkable. Orbits: There are no acute orbital abnormalities. There are postsurgical changes in the left orbit. IMPRESSION: Atrophy and small vessel disease, no acute intracranial abnormality
[2016-10-29] MEDS ORDERED: Sodium Chloride 0.9% 500 ML IV STA (20:27)
--- NOTE | 2016-10-30 08:53 | RAD ---
HISTORY: AMS COMPARISON: No prior. FINDINGS: LUNGS: The lungs are clear. PLEURA: No significant pleural effusion identified, no pneumothorax apparent. CARDIOVASCULAR: Normal. OSSEOUS STRUCTURES: There. Is levoscoliosis in the thoracolumbar spine VISUALIZED UPPER ABDOMEN: Normal. OTHER FINDINGS: Surgical clips in the right upper quadrant are related to prior cholecystectomy. IMPRESSION: No acute findings.
--- NOTE | 2016-10-31 11:05 | CARD ---
APPROVED REPORT EKG Measurement Heart [id number] <Conclusion> Normal sinus rhythm Normal ECG
== END 2016-10-29 21:55 | disposition home or self-care (01) ==
LOC: H.ER 18:17
DX: R63.0 Anorexia (principal); F02.80 Dementia in other diseases classified elsewhere, unspecified severity, without behavioral disturbance, psychotic disturbance, mood disturbance, and anxiety; G30.9 Alzheimer's disease, unspecified; I10 Essential (primary) hypertension
CPT/HCPCS: 70450; 71010; 80053; 81003; 82803; 82948; 83690; 83735; 83880; 84100; 84484; 85025; 85610; 85730; 86850; 86900; 87040; 87086; 93005; 99284; J7040